=== PATIENT | male | born 1935 | race African-American/Black ===

== ENCOUNTER 2023-07-22 13:00 | Emergency (ER) | payer SELFPAY ==
[~2023-07-22] VITALS: Ht 165.1 cm; Wt 58.0 kg
[2023-07-22 13:07] VITALS: BP 182/100; PULSE 92; RESP 16; TEMP 97.8; O2SAT 100
== END 2023-07-22 15:49 | disposition left against medical advice (07) ==
LOC: ER 13:00
DX: R68.89 Other general symptoms and signs (principal)
CPT/HCPCS: 99283

== ENCOUNTER 2023-07-22 17:39 | Inpatient (IN) | payer SELFPAY ==
[~2023-07-22] VITALS: Ht 177.8 cm; Wt 54.0 kg
[2023-07-22 20:03] LABS: BASOPHILS % 0.2 % (0.0-2.0); EOSINOPHILS % 0.1 % (0.0-5.0); HEMATOCRIT. 39.3 % (42.0-52.0); HEMOGLOBIN. 13.1 g/dL (14.0-18.0); LYMPHOCYTES % 10.6 % (20.0-50.0); MEAN CORPUSCULAR HEMOGLOBIN 31.9 pg (28.0-32.0); MEAN CORPUSCULAR HGB CONC 33.3 g/dL (31.0-37.0); MEAN CORPUSCULAR VOLUME 95.8 fL (80.0-94.0); MEAN PLATELET VOLUME 7.2 fl (7.4-10.4); MONOCYTES % 11.2 % (2.0-8.0); NEUTROPHILS % 77.9 % (40.0-76.0); PLATELET 171 x1000/uL (130-400); RED BLOOD CELL COUNT 4.11 mill/uL (4.7-6.1); RED CELL DISTRIBUTION WIDTH 13.9 % (11.6-14.6); WHITE BLOOD COUNT 7.1 x1000/uL (4.5-11.0)
[2023-07-22 20:12] LABS: CHLORIDE 105 mEq/L (98-107); INDEX HEMOLYSI 1 (1-3); INDEX ICTERIC 1 (1-4); INDEX LIPEMIC 1 (1-3); POTASSIUM 4.8 mEq/L (3.5-5.1); SODIUM 137 mEq/L (136-145)
[2023-07-22 20:23] LABS: ALANINE AMINOTRANSFERASE 39 IU/L (13-61); ALBUMIN 3.9 g/dL (3.4-5.0); ASPARTATE AMINOTRANSFERASE 47 IU/L (15-37); BILIRUBIN TOTAL 1.5 mg/dL (0.1-1.0); CALCIUM 8.8 mg/dL (8.5-10.1); CARBON DIOXIDE 27 mEq/L (21-32); CREATININE 1.2 mg/dL (0.6-1.3); GLUCOSE 101 mg/dL (70-105); PROTEIN TOTAL 7.9 g/dL (6.0-8.3); UREA NITROGEN BLOOD 25 mg/dL (7-21)
[2023-07-22] MEDS: AMLODIPINE 10MG TABLET PO SCH (23:41)
[2023-07-22 23:42] VITALS: BP 195/103; PULSE 74; RESP 18; TEMP 98.8
[2023-07-23] VITALS: BP 190/96; PULSE 69; RESP 16; TEMP 99
[2023-07-23 04:00] VITALS: BP 166/85; PULSE 78; RESP 18; TEMP 98.4
[2023-07-23 08:00] VITALS: BP 165/85; PULSE 74; RESP 20; TEMP 98.2
[2023-07-23] MEDS: ASPIRIN 81MG TABLET PO SCH (08:36)
[2023-07-23] MEDS: AMLODIPINE 10MG TABLET PO SCH (08:36)
[2023-07-23] MEDS ORDERED: ENOXAPARIN 30MG/0.3ML SYR SUBCUT SCH (09:00)
[2023-07-23 12:00] VITALS: BP 154/73; PULSE 70; RESP 20; TEMP 97.2
[2023-07-23] MEDS: SODIUM CHLORIDE 0.9% 1,000 ML IV SCH (17:45)
[2023-07-23] MEDS ORDERED: ENOXAPARIN 40MG/0.4ML SYR SUBCUT SCH (17:45)
[2023-07-23] MEDS ORDERED: ONDANSETRON HCL 4MG/2ML INJ IV PRN (17:45)
[2023-07-23 20:00] VITALS: BP 157/87; PULSE 81; RESP 18; TEMP 97.5
[2023-07-24] VITALS: BP 157/81; PULSE 86; RESP 17; TEMP 99.1
[2023-07-24 06:45] LABS: BASOPHILS % 0.6 % (0.0-2.0); EOSINOPHILS % 1.6 % (0.0-5.0); HEMATOCRIT. 41.9 % (42.0-52.0); HEMOGLOBIN. 14.3 g/dL (14.0-18.0); LYMPHOCYTES % 27.6 % (20.0-50.0); MEAN CORPUSCULAR HEMOGLOBIN 32.5 pg (28.0-32.0); MEAN CORPUSCULAR HGB CONC 34.3 g/dL (31.0-37.0); MEAN CORPUSCULAR VOLUME 94.8 fL (80.0-94.0); MONOCYTES % 13.8 % (2.0-8.0); NEUTROPHILS % 56.4 % (40.0-76.0); PLATELET 195 x1000/uL (130-400); RED BLOOD CELL COUNT 4.41 mill/uL (4.7-6.1); RED CELL DISTRIBUTION WIDTH 13.8 % (11.6-14.6); WHITE BLOOD COUNT 6.5 x1000/uL (4.5-11.0)
[2023-07-24 07:07] LABS: CHLORIDE 103 mEq/L (98-107); INDEX HEMOLYSI 1 (1-3); INDEX ICTERIC 1 (1-4); INDEX LIPEMIC 1 (1-3); POTASSIUM 3.8 mEq/L (3.5-5.1); SODIUM 134 mEq/L (136-145)
[2023-07-24 07:14] LABS: CALCIUM 7.9 mg/dL (8.5-10.1); CARBON DIOXIDE 20 mEq/L (21-32); CREATININE 1.3 mg/dL (0.6-1.3); GLUCOSE 95 mg/dL (70-105); UREA NITROGEN BLOOD 33 mg/dL (7-21)
[2023-07-24 08:00] VITALS: BP 112/71; PULSE 71; RESP 16; TEMP 98.1
[2023-07-24] MEDS: AMLODIPINE 10MG TABLET PO SCH (09:55)
[2023-07-24] MEDS: ENOXAPARIN 40MG/0.4ML SYR SUBCUT SCH (09:55)
[2023-07-24] MEDS: ASPIRIN 81MG TABLET PO SCH (09:55)
[2023-07-24 12:00] VITALS: BP 162/90; PULSE 88; RESP 20; TEMP 96.8
[2023-07-24] MEDS ORDERED: LORAZEPAM 2MG/ML CPJ IV PRN (14:45)
[2023-07-24] MEDS ORDERED: LORAZEPAM 0.5MG TABLET PO NR (15:45)
[2023-07-24 20:00] VITALS: BP 164/87; PULSE 67; RESP 18; TEMP 96.6
[2023-07-24] MEDS: SODIUM CHLORIDE 0.9% 1,000 ML IV SCH (20:25)
[2023-07-24] MEDS: RISPERIDONE 0.25MG TABLET PO SCH (21:49)
[2023-07-24] MEDS: CLONIDINE 0.1MG TABLET PO PRN (21:50)
[2023-07-25 04:00] VITALS: BP 164/79; PULSE 67; RESP 18; TEMP 96.3
[2023-07-25 08:00] VITALS: BP 170/75; PULSE 52; RESP 20; TEMP 98.2
[2023-07-25] MEDS: ENOXAPARIN 40MG/0.4ML SYR SUBCUT SCH (08:49)
[2023-07-25] MEDS: ACETAMINOPHEN 325MG TABLET PO PRN (08:49)
[2023-07-25] MEDS: ASPIRIN 81MG TABLET PO SCH (08:49)
[2023-07-25] MEDS: AMLODIPINE 10MG TABLET PO SCH (08:50)
[2023-07-25] MEDS: RISPERIDONE 0.25MG TABLET PO SCH (08:50)
[2023-07-25] MEDS: SODIUM CHLORIDE 0.9% 1,000 ML IV SCH ×2 (08:57→21:35)
[2023-07-25 12:00] VITALS: BP 165/82; PULSE 59; RESP 19; TEMP 98.2
[2023-07-25 16:00] VITALS: BP 160/80; PULSE 60; RESP 20; TEMP 98.2
[2023-07-25 18:21] VITALS: BP 135/75; PULSE 78
[2023-07-25] MEDS: LORAZEPAM 2MG/ML CPJ IV PRN (21:34)
[2023-07-26 08:00] VITALS: BP 178/86; PULSE 76; RESP 19; TEMP 97.5
[2023-07-26] MEDS: RISPERIDONE 0.25MG TABLET PO SCH (08:37)
[2023-07-26] MEDS: ASPIRIN 81MG TABLET PO SCH (08:38)
[2023-07-26] MEDS: AMLODIPINE 10MG TABLET PO SCH (08:38)
[2023-07-26] MEDS: ACETAMINOPHEN 325MG TABLET PO PRN (08:38)
[2023-07-26] MEDS: LOSARTAN 25 MG TABLET PO SCH (08:38)
[2023-07-26] MEDS: ENOXAPARIN 40MG/0.4ML SYR SUBCUT SCH (08:39)
[2023-07-26 12:00] VITALS: BP 128/81; PULSE 75; RESP 19; TEMP 95.6
[2023-07-26 16:00] VITALS: BP 118/63; PULSE 74; RESP 19; TEMP 96.6
[2023-07-26 20:00] VITALS: BP 149/68; PULSE 82; RESP 18; TEMP 97.4
[2023-07-27] MEDS: SODIUM CHLORIDE 0.9% 1,000 ML IV SCH ×2 (01:45→15:05)
[2023-07-27 08:00] VITALS: BP 155/65; PULSE 71; RESP 19; TEMP 97.7
[2023-07-27] MEDS: ENOXAPARIN 40MG/0.4ML SYR SUBCUT SCH (09:00)
[2023-07-27] MEDS: DOCUSATE SODIUM 250MG CAPSULE PO SCH ×2 (09:16→17:00)
[2023-07-27] MEDS: RISPERIDONE 0.25MG TABLET PO SCH (09:19)
[2023-07-27] MEDS: LOSARTAN 25 MG TABLET PO SCH (09:20)
[2023-07-27] MEDS: ASPIRIN 81MG TABLET PO SCH (09:20)
[2023-07-27] MEDS: AMLODIPINE 10MG TABLET PO SCH (09:20)
[2023-07-27 12:00] VITALS: BP 135/47; PULSE 80; RESP 19; TEMP 97.5
[2023-07-27 16:00] VITALS: BP 117/65; PULSE 81; RESP 18; TEMP 97.7
[2023-07-27 20:00] VITALS: BP 136/76; PULSE 72; RESP 18; TEMP 98.8
[2023-07-28] VITALS: BP 133/62; PULSE 79; RESP 18; TEMP 98.2
[2023-07-28 04:00] VITALS: BP 136/70; PULSE 63; RESP 18; TEMP 98.1
[2023-07-28] MEDS: SODIUM CHLORIDE 0.9% 1,000 ML IV SCH ×2 (04:25→17:45)
[2023-07-28 08:00] VITALS: BP 196/94; PULSE 77; RESP 19; TEMP 97.9
[2023-07-28] MEDS: LOSARTAN 25 MG TABLET PO SCH (08:42)
[2023-07-28] MEDS: DOCUSATE SODIUM 250MG CAPSULE PO SCH ×2 (08:42→17:00)
[2023-07-28] MEDS: AMLODIPINE 10MG TABLET PO SCH (08:42)
[2023-07-28] MEDS: RISPERIDONE 0.25MG TABLET PO SCH (08:42)
[2023-07-28] MEDS: ASPIRIN 81MG TABLET PO SCH (08:42)
[2023-07-28] MEDS: ENOXAPARIN 40MG/0.4ML SYR SUBCUT SCH (09:00)
[2023-07-28 12:00] VITALS: BP 128/65; PULSE 66; RESP 18; TEMP 97.9
[2023-07-28 16:00] VITALS: BP 112/73; PULSE 72; RESP 18; TEMP 97.7
[2023-07-28] MEDS: LORAZEPAM 2MG/ML CPJ IV PRN (22:18)
[2023-07-29 08:00] VITALS: BP 152/85; PULSE 79; RESP 20; TEMP 98
[2023-07-29] MEDS: RISPERIDONE 0.25MG TABLET PO SCH (09:33)
[2023-07-29] MEDS: LOSARTAN 25 MG TABLET PO SCH (09:33)
[2023-07-29] MEDS: DOCUSATE SODIUM 250MG CAPSULE PO SCH ×2 (09:34→18:03)
[2023-07-29] MEDS: AMLODIPINE 10MG TABLET PO SCH (09:34)
[2023-07-29] MEDS: ASPIRIN 81MG TABLET PO SCH (09:34)
[2023-07-29] MEDS: ACETAMINOPHEN 325MG TABLET PO PRN (09:34)
[2023-07-29] MEDS: ENOXAPARIN 40MG/0.4ML SYR SUBCUT SCH (09:35)
[2023-07-29 12:00] VITALS: BP 100/58; PULSE 69; RESP 17; TEMP 96.6
[2023-07-29 16:00] VITALS: BP 138/74; PULSE 75; RESP 20; TEMP 97
[2023-07-29 19:12] LABS: BASOPHILS % 0.9 % (0.0-2.0); EOSINOPHILS % 1.9 % (0.0-5.0); HEMATOCRIT. 36.9 % (42.0-52.0); HEMOGLOBIN. 12.5 g/dL (14.0-18.0); LYMPHOCYTES % 21.1 % (20.0-50.0); MEAN CORPUSCULAR HEMOGLOBIN 32.5 pg (28.0-32.0); MEAN CORPUSCULAR VOLUME 95.5 fL (80.0-94.0); MEAN PLATELET VOLUME 8.2 fl (7.4-10.4); MONOCYTES % 14.7 % (2.0-8.0); NEUTROPHILS % 61.4 % (40.0-76.0); PLATELET 179 x1000/uL (130-400); RED BLOOD CELL COUNT 3.86 mill/uL (4.7-6.1); RED CELL DISTRIBUTION WIDTH 13.8 % (11.6-14.6); WHITE BLOOD COUNT 5.5 x1000/uL (4.5-11.0)
[2023-07-29 19:28] LABS: CHLORIDE 104 mEq/L (98-107); INDEX HEMOLYSI 1 (1-3); INDEX ICTERIC 1 (1-4); INDEX LIPEMIC 1 (1-3); POTASSIUM 4.2 mEq/L (3.5-5.1); SODIUM 135 mEq/L (136-145)
[2023-07-29 19:30] LABS: CALCIUM 8.3 mg/dL (8.5-10.1); CARBON DIOXIDE 24 mEq/L (21-32); UREA NITROGEN BLOOD 25 mg/dL (7-21)
[2023-07-29 19:33] LABS: CREATININE 1.1 mg/dL (0.6-1.3); GLUCOSE 93 mg/dL (70-105)
[2023-07-29 20:00] VITALS: BP 164/82; PULSE 71; RESP 18; TEMP 97.7
[2023-07-29] MEDS: SODIUM CHLORIDE 0.9% 1,000 ML IV SCH (20:25)
[2023-07-29] MEDS: CLONIDINE 0.1MG TABLET PO PRN (21:09)
[2023-07-30] VITALS: BP 120/59; PULSE 57; RESP 18; TEMP 97.2
[2023-07-30 04:00] VITALS: BP 120/63; PULSE 80; RESP 18; TEMP 97.6
[2023-07-30 08:00] VITALS: BP 116/63; PULSE 83; RESP 18; TEMP 97.5
[2023-07-30] MEDS: ASPIRIN 81MG TABLET PO SCH (09:00)
[2023-07-30] MEDS: LOSARTAN 25 MG TABLET PO SCH (09:00)
[2023-07-30] MEDS: DOCUSATE SODIUM 250MG CAPSULE PO SCH (09:06)
[2023-07-30] MEDS: RISPERIDONE 0.25MG TABLET PO SCH (09:06)
[2023-07-30] MEDS: AMLODIPINE 10MG TABLET PO SCH (09:15)
[2023-07-30] MEDS: ENOXAPARIN 40MG/0.4ML SYR SUBCUT SCH (09:19)
[2023-07-30 11:56] VITALS: BP 141/71; PULSE 67; RESP 18; TEMP 97.2
[2023-07-30 15:54] VITALS: BP 120/62; PULSE 67; RESP 18; TEMP 98.6
[2023-07-30 20:00] VITALS: BP 129/66; PULSE 73; RESP 20; TEMP 98.2
[2023-07-30] MEDS ORDERED: ONDANSETRON 4MG ODT PO PRN (20:42)
[2023-07-31] VITALS: BP 123/64; PULSE 74; RESP 20; TEMP 97.9
[2023-07-31 04:00] VITALS: BP 136/68; PULSE 72; RESP 20; TEMP 98.1
[2023-07-31 08:00] VITALS: BP 130/68; PULSE 78; RESP 18; TEMP 97.5
[2023-07-31] MEDS: LOSARTAN 25 MG TABLET PO SCH (08:12)
[2023-07-31] MEDS: RISPERIDONE 0.25MG TABLET PO SCH (08:12)
[2023-07-31] MEDS: ASPIRIN 81MG TABLET PO SCH (08:12)
[2023-07-31] MEDS: AMLODIPINE 10MG TABLET PO SCH (08:12)
[2023-07-31] MEDS: ENOXAPARIN 40MG/0.4ML SYR SUBCUT SCH (08:12)
[2023-07-31] MEDS: DOCUSATE SODIUM 250MG CAPSULE PO SCH ×2 (08:12→17:00)
[2023-07-31 12:00] VITALS: BP 153/83; PULSE 76; RESP 18; TEMP 99
[2023-07-31 16:03] VITALS: BP 150/72; PULSE 74; RESP 18; TEMP 100.4
[2023-07-31 20:00] VITALS: BP 130/74; PULSE 62; RESP 18; TEMP 98.2
[2023-08-01] VITALS: BP 134/64; PULSE 64; RESP 18; TEMP 96.6
[2023-08-01] MEDS: SODIUM CHLORIDE 0.9% 1,000 ML IV SCH ×3 (00:40→15:05)
[2023-08-01 04:00] VITALS: BP 134/64; PULSE 62; RESP 17; TEMP 98.1
[2023-08-01 08:00] VITALS: BP 130/62; PULSE 72; RESP 19; TEMP 98.7
[2023-08-01] MEDS: ASPIRIN 81MG TABLET PO SCH (08:52)
[2023-08-01] MEDS: AMLODIPINE 10MG TABLET PO SCH (08:52)
[2023-08-01] MEDS: DOCUSATE SODIUM 250MG CAPSULE PO SCH ×2 (08:53→17:00)
[2023-08-01] MEDS: LOSARTAN 25 MG TABLET PO SCH (08:53)
[2023-08-01] MEDS: RISPERIDONE 0.25MG TABLET PO SCH (08:54)
[2023-08-01] MEDS: ENOXAPARIN 40MG/0.4ML SYR SUBCUT SCH (08:54)
[2023-08-01 12:00] VITALS: BP 130/64; PULSE 72; RESP 18; TEMP 98.7
[2023-08-01] MEDS ORDERED: ASPI-1160 PO (13:01)
[2023-08-01] MEDS ORDERED: LOSA25TA26 PO (13:01)
[2023-08-01] MEDS ORDERED: AMLO10TA80 PO (13:01)
[2023-08-01] MEDS ORDERED: RISP05 MT (13:02)
[2023-08-01 16:00] VITALS: BP 131/62; PULSE 72; RESP 19; TEMP 98.7
[2023-08-01 20:00] VITALS: BP 129/71; PULSE 68; RESP 19; TEMP 98.6
[2023-08-02] VITALS: BP 152/72; PULSE 75; RESP 18; TEMP 97.5
[2023-08-02] MEDS: LORAZEPAM 2MG/ML CPJ IM PRN ×3 (03:16→16:31)
[2023-08-02 04:00] VITALS: BP 117/53; PULSE 65; RESP 19; TEMP 98.7
[2023-08-02] MEDS: SODIUM CHLORIDE 0.9% 1,000 ML IV SCH (04:33)
[2023-08-02 08:00] VITALS: BP 150/72; PULSE 72; RESP 20; TEMP 97.7
[2023-08-02] MEDS: RISPERIDONE 0.25MG TABLET PO SCH (08:56)
[2023-08-02] MEDS: ASPIRIN 81MG TABLET PO SCH (08:56)
[2023-08-02] MEDS: AMLODIPINE 10MG TABLET PO SCH (08:57)
[2023-08-02] MEDS: LOSARTAN 25 MG TABLET PO SCH (08:57)
[2023-08-02] MEDS: DOCUSATE SODIUM 250MG CAPSULE PO SCH (08:57)
[2023-08-02] MEDS: ENOXAPARIN 40MG/0.4ML SYR SUBCUT SCH (08:58)
[2023-08-02 12:00] VITALS: BP 126/69; PULSE 76; RESP 20; TEMP 97.5
[2023-08-02 13:48] VITALS: BP 126/69; PULSE 76; TEMP 97.5; O2SAT 98
[2023-08-02] MEDS: CLONIDINE 0.1MG TABLET PO PRN (16:14)
== END 2023-08-02 16:40 | disposition home or self-care (01) | DRG 52 ==
LOC: ER 17:39 → EDBEDREQ 20:48 → EDBEDREQTM 20:48 → 6EST 22:52
PROVIDERS: ADMIT Internal Medicine; ATTEND Internal Medicine
DX: G93.41 Metabolic encephalopathy (principal); F03.92 Unspecified dementia, unspecified severity, with psychotic disturbance; G82.20 Paraplegia, unspecified; E86.0 Dehydration; Z53.29 Procedure and treatment not carried out because of patient's decision for other reasons; Z74.01 Bed confinement status
CPT/HCPCS: 36415; 80048; 80053; 85025; 99285; J1650; J2060; J7030